=== PATIENT | female | born 1945 | race Caucasian/White ===

== ENCOUNTER 2020-09-11 09:26 | Day surgery (SDC) | payer MEDICARE, MEDICAID ==
[2020-09-02 16:13] LABS: BASOPHILS # (AUTO) 0.1 X10'3 (0-0.2); BASOPHILS % (AUTO) 0.9 % (0-1); EOSINOPHILS # (AUTO) 0.2 X10'3 (0-0.9); EOSINOPHILS % (AUTO) 2.4 % (0-6); LYMPHOCYTES # (AUTO) 2.6 X10'3 (1.1-4.8); LYMPHOCYTES % (AUTO) 39.1 % (21-51); MEAN CORPUSCULAR HEMOGLOBIN 29.7 PG (27.0-31.0); MEAN CORPUSCULAR HGB CONC 33.8 g/dL (33.0-36.5); MEAN PLATELET VOLUME 8.3 FL (7.4-10.4); MONOCYTES # (AUTO) 0.6 X10'3 (0-0.9); MONOCYTES % (AUTO) 9.4 % (2-12); NEUTROPHILS # (AUTO) 3.2 X10'3 (1.8-7.7); NEUTROPHILS % (AUTO) 48.2 % (42-75); PRE OP HEMATOCRIT 35.3 % (35.0-45.0); PRE OP HEMOGLOBIN 11.9 g/dL (12.0-16.0); PRE OP PLATELET COUNT 211 X10'3 (140-440); RED BLOOD COUNT 4.02 X10'6 (4.20-5.60); RED CELL DISTRIBUTION WIDTH 13.9 % (11.5-14.5)
[2020-09-02 16:18] LABS: HEMOGLOBIN A1C 6.8 % (4.5-6.2)
[2020-09-02 16:33] LABS: ALBUMIN 4.4 G/DL (3.4-5.0); ALBUMIN/GLOBULIN RATIO 1.2 (1.1-1.5); ALKALINE PHOSPHATASE 66 IU/L (46-116); BLOOD UREA NITROGEN 19 MG/DL (7-18); BUN/CREATININE RATIO 15.7 (6.6-38.0); CALCIUM 9.6 MG/DL (8.5-10.1); CHLORIDE 96 MMOL/L (99-107); CREATININE 1.21 MG/DL (0.40-0.90); PRE OP ALT 29 U/L (30-65); PRE OP ANION GAP 10 (8-16); PRE OP AST 24 U/L (10-37); PRE OP BILIRUB, TOTAL 0.4 MG/DL (0.0-1.0); PRE OP GLUCOSE 119 MG/DL (70-104); PRE OP POTASSIUM 3.4 MMOL/L (3.4-5.1); PRE OP SODIUM 136 MMOL/L (135-145); TOTAL CARBON DIOXIDE 29.9 MMOL/L (24-32); eGFR 43 ML/MIN
[~2020-09-11] VITALS: Ht 165.1 cm; Wt 85.3 kg
[~2020-09-11 09:26] MED LIST: AMLO5TAB16 PO; ASPI-1265 PO; AZIL1TAB3 PO; DOCUMENT DATE & TIME OF BETA-BLOCKER PO ONE; FAMO20TA9 PO; FURO40TA4 PO; METF-438 PO; METO-384 PO; OMEP-50 PO; OXYB10TA30 PO; POTA20TA19 PO; RANO500T6 PO; ROSU20TA31 PO; SITA50TA PO; VANCOMYCIN INJ 1000 MG in NORMAL SALINE 250ml IV.SOLN IV ONE; cefazolin/dext.iso 2gm/100ml IV ONE; famotidine 20mg tablet PO ONE; ringers solution, lacted 1,000 ML IV SCH; tranexamic acid 1gm/0.7% sal. 100 ML IV ONE
[2020-09-11] MEDS ORDERED: fentaNYL/PF 50MCG/1 ML 2ML syringe ONE (10:35)
[2020-09-11] MEDS ORDERED: MIDAZolam 1mg/ml 10ml vial ONE (10:35)
--- NOTE | 2020-09-11 11:10 | NUR ---
PT TESTED POSITIVE FOR COVID. SURGERY CANCELLED PER DR PARIKH. ROOM MARKED TO BE A TERMINAL CLEAN. PT TAKEN TO CAR BY W/Tasha
== END 2020-09-11 11:10 | disposition home or self-care (01) ==
LOC: PAS 09:26
PROVIDERS: ATTEND Orthopaedic Surgery
DX: M16.11 Unilateral primary osteoarthritis, right hip (principal); U07.1 COVID-19; Z53.8 Procedure and treatment not carried out for other reasons; B34.2 Coronavirus infection, unspecified; I10 Essential (primary) hypertension; E11.9 Type 2 diabetes mellitus without complications
CPT/HCPCS: 36415; 80053; 83036; 84443; 85025; 86885; 86900; 86901; 86920; 87081; 87635; C9803; J2250; J3010; J3370; J7120